=== PATIENT | male | born 2000 | race Caucasian/White ===

== ENCOUNTER → 2021-02-27 | Outpatient (CLI) | payer OTHER | END | disposition home or self-care (01) | LOC: LABMAIN 17:24 | PROVIDERS: ATTEND Emergency Medicine | DX: Z20.822 Contact with and (suspected) exposure to COVID-19 (principal) | CPT/HCPCS: 87635 ==

== ENCOUNTER 2021-05-16 22:40 | Emergency (ER) | payer OTHER ==
[2021-05-16 22:59] VITALS: RESP 18
[2021-05-16] MEDS ORDERED: PANTOPRAZOLE 40 MG/10 ML VIAL IVP STA (23:49)
[2021-05-16] MEDS ORDERED: SODIUM CHLORIDE 0.9% 1,000 ML IV STA (23:49)
[2021-05-16] MEDS ORDERED: SODIUM CHLORIDE 0.9% 500 ML 500 ML IV STA (23:49)
[2021-05-16] MEDS ORDERED: ONDANSETRON 4 MG/2 ML VIAL IVP STA (23:49)
[2021-05-16] MEDS ORDERED: KETOROLAC 15 MG/ML 1 ML VIAL IVP STA (23:50)
[2021-05-16] MEDS ORDERED: diphenhydrAMINE 50 MG/ML 1 ML VIAL IVP STA (23:50)
--- NOTE | 2021-05-16 23:51 | ED ---
Nausea/Vomiting/Diarrhea HPI - General Chief complaint: Nausea/Vomiting/Diarrhea Stated complaint: Nausea, Vomiting, Diziness Time Seen by Provider: 05/16/21 23:49 Source: patient, RN notes reviewed, old records reviewed Mode of arrival: ambulatory Limitations: no limitations - History of Present Illness Initial comments: This is a 20-year-old male to the emergency department for evaluation. Patient's coming in for evaluation regarding nausea vomiting and diarrhea. Patient also is complaining of headache that started about 5 AM. Patient has no prior history of similar symptoms. No prior history of travel, no known significant sick contacts. Patient denying fever. MD complaint: nausea, vomiting, diarrhea -: hour(s) Description of Vomiting: watery Description of Diarrhea: water Associated Abdominal Pain: Yes Location: diffuse Radiation: none Severity: moderate Severity scale (1-10): 4 Quality: cramping, aching Consistency: intermittent Improves with: none Worsens with: none Associated Symptoms: myalgias, headaches, loss of appetite, nausea/vomiting - Related Data Allergies Allergy/AdvReac Type Severity Reaction Status Date / Time No Known Allergies Allergy Verified 05/17/21 00:29 Review of Systems ROS Statement: Those systems with pertinent positive or pertinent negative responses have been documented in the HPI. ROS Other: All systems not noted in ROS Statement are negative. Past Medical History Past Medical History: No Reported History History of Any Multi-Drug Resistant Organisms: None Reported Past Surgical History: No Surgical Hx Reported Past Psychological History: No Psychological Hx Reported Smoking Status: Never smoker Past Alcohol Use History: None Reported Past Drug Use History: None Reported General Exam Limitations: no limitations General appearance: alert, in no apparent distress Head exam: Present: atraumatic, normocephalic, normal inspection Eye exam: Present: normal appearance, PERRL, EOMI. Absent: scleral icterus, conjunctival injection, periorbital swelling ENT exam: Present: normal exam, mucous membranes moist Neck exam: Present: normal inspection. Absent: tenderness, meningismus, lymphadenopathy Respiratory exam: Present: normal lung sounds bilaterally. Absent: respiratory distress, wheezes, rales, rhonchi, stridor Cardiovascular Exam: Present: normal rhythm, tachycardia, normal heart sounds. Absent: systolic murmur, diastolic murmur, rubs, gallop, clicks GI/Abdominal exam: Present: soft, normal bowel sounds. Absent: distended, tenderness, guarding, rebound, rigid Extremities exam: Present: normal inspection, full ROM, normal capillary refill. Absent: tenderness, pedal edema, joint swelling, calf tenderness Back exam: Present: normal inspection Neurological exam: Present: alert, oriented X3, CN II-XII intact Psychiatric exam: Present: normal affect, normal mood Skin exam: Present: warm, dry, intact, normal color. Absent: rash Course Vital Signs 05/16/21 05/17/21 22:55 00:23 Temperature 98.5 F Pulse Rate 107 H 102 H Respiratory 18 18 Rate Blood Pressure 105/63 125/67 O2 Sat by Pulse 98 99 Oximetry - Reevaluation(s) Reevaluation #1: 05/16/21 23:51 Medical records reviewed Reevaluation #2: 05/17/21 02:25 Patient significant symptoms improved here in the ER Reevaluation #3: 05/17/21 02:25 Patient informed results and questions answered Medical Decision Making - Medical Decision Making 20 male to the emergency department for evaluation patient presents today for evaluation regards to nausea vomiting. Negative for Kovic. Symptoms improved here in the ER and can be discharged home - Lab Data Result diagrams: 05/17/21 00:17 05/17/21 01:00 Lab Results 05/17/21 05/17/21 05/17/21 Range/Units 00:17 01:00 01:49 WBC 13.2 H (4.0-11.0) k/uL RBC 6.29 H (4.30-5.90) m/uL Hgb 19.8 H* (13.0-17.5) gm/dL Hct 56.6 H (39.0-53.0) % MCV 90.0 (80.0-100.0) fL MCH 31.5 (25.0-35.0) pg MCHC 35.0 (31.0-37.0) g/dL RDW 13.3 (11.5-15.5) % Plt Count 174 (150-450) k/uL MPV 8.0 Neutrophils % 93 % Lymphocytes % 2 % Monocytes % 4 % Eosinophils % 0 % Basophils % 0 % Neutrophils # 12.3 H (1.3-7.7) k/uL Lymphocytes # 0.3 L (1.0-4.8) k/uL Monocytes # 0.5 (0-1.0) k/uL Eosinophils # 0.1 (0-0.7) k/uL Basophils # 0.0 (0-0.2) k/uL Sodium 139 (137-145) mmol/L Potassium 4.8 (3.5-5.1) mmol/L Chloride 107 (98-107) mmol/L Carbon Dioxide 21 L (22-30) mmol/L Anion Gap 11 mmol/L BUN 21 H (9-20) mg/dL Creatinine 0.99 (0.66-1.25) mg/dL Est GFR (CKD-EPI)AfAm >90 (>60 ml/min/1.73 sqM) Est GFR (CKD-EPI)NonAf >90 (>60 ml/min/1.73 sqM) Glucose 106 H (74-99) mg/dL Calcium 9.1 (8.4-10.2) mg/dL Total Bilirubin 1.0 (0.2-1.3) mg/dL AST 30 (17-59) U/L ALT 24 (4-49) U/L Alkaline Phosphatase 64 (38-126) U/L Lactate Dehydrogenase 545 (313-618) U/L C-Reactive Protein 2.8 H (<1.0) mg/dL Total Protein 7.7 (6.3-8.2) g/dL Albumin 4.6 (3.5-5.0) g/dL Amylase 52 (30-110) U/L Lipase 36 (23-300) U/L Coronavirus (PCR) Not Detected (Not Detectd) - Radiology Data Radiology results: report reviewed (Chest x-rays negative for acute disease), image reviewed Disposition Clinical Impression: Gastroenteritis, Dehydration, Nausea & vomiting Disposition: HOME SELF-CARE Condition: Good Instructions (If sedation given, give patient instructions): Acute Nausea and Vomiting (ED) Is patient prescribed a controlled substance at d/c from ED?: No Referrals: Cole Rincon MD [Primary Care Provider] - 1-2 days
[2021-05-17 00:40] LABS: Basophils % (A) 0 %; Eosinophils # (A) 0.1 k/uL (0-0.7); Eosinophils % (A) 0 %; Lymphocytes # (A) 0.3 k/uL (1.0-4.8); Lymphocytes % (A) 2 %; MCH 31.5 pg (25.0-35.0); Monocytes # (A) 0.5 k/uL (0-1.0); Monocytes % (A) 4 %; Neutrophils # (A) 12.3 k/uL (1.3-7.7); Neutrophils % (A) 93 %; Platelet Count 174 k/uL (150-450); RBC 6.29 m/uL (4.30-5.90); RDW 13.3 % (11.5-15.5); WBC 13.2 k/uL (4.0-11.0)
[2021-05-17 00:43] LABS: HGB 19.8 gm/dL (13.0-17.5)
[2021-05-17 00:44] LABS: HCT 56.6 % (39.0-53.0)
[2021-05-17 01:26] LABS: ALT 24 U/L (4-49); AST 30 U/L (17-59); African American GFR (CKD) >90 (>60 ml/min/1.73 sqM); Albumin 4.6 g/dL (3.5-5.0); Alkaline Phosphatase 64 U/L (38-126); Amylase 52 U/L (30-110); Anion Gap 11 mmol/L; Blood Urea Nitrogen 21 mg/dL (9-20); C Reactive Protein 2.8 mg/dL (<1.0); Calcium 9.1 mg/dL (8.4-10.2); Carbon Dioxide 21 mmol/L (22-30); Chloride 107 mmol/L (98-107); Glucose 106 mg/dL (74-99); LDH 545 U/L (313-618); Lipase 36 U/L (23-300); Non-African American GFR(CKD) >90 (>60 ml/min/1.73 sqM); Sodium 139 mmol/L (137-145); Total Protein 7.7 g/dL (6.3-8.2)
[2021-05-17 01:35] LABS: Potassium 4.8 mmol/L (3.5-5.1)
--- NOTE | 2021-05-17 02:14 | XR ---
EXAMINATION TYPE: XR chest 1V portable DATE OF EXAM: 05/17/2021 COMPARISON: NONE HISTORY: Short of breath TECHNIQUE: Single view FINDINGS: Heart and mediastinum are normal. Lungs are clear. Diaphragm is normal. Bony thorax appears normal. IMPRESSION: Normal chest.
[2021-05-17] MEDS ORDERED: ONDANSETRON 4 MG ODT STARTER PACK 2 TAB BTL PO STA (02:26)
[2021-05-17 02:50] VITALS: BP 117/54; PULSE 78; TEMP 97.9
== END 2021-05-17 02:49 | disposition home or self-care (01) ==
LOC: EC 22:40
DX: K52.9 Noninfective gastroenteritis and colitis, unspecified (principal); E86.0 Dehydration; Z20.822 Contact with and (suspected) exposure to COVID-19
CPT/HCPCS: 99284; 96374; 96375 ×3; 96361 ×6; 36415; 80053; 82150; 83615; 83690; 85025; 86140; 87635; 71045; J1200; J2405; J1885; S0119; C9113

== ENCOUNTER 2022-01-23 06:36 | Day surgery (SDC) | payer OTHER ==
[2022-01-21 11:43] VITALS: BMI 29.4
[~2022-01-23 06:36] MED LIST: LACTATED RINGERS 1,000 ML IV SCH; LIDOCAINE 1% (10MG/ML) FOR IV START INTRADERMA PRN
[2022-01-23 06:52] VITALS: RESP 16; TEMP 97.8
[2022-01-23] MEDS ORDERED: MIDAZOLAM 2 MG/2 ML VIAL ONE (07:30)
[2022-01-23] MEDS ORDERED: LIDOCAINE 2% INJ 20 MG/ML (2 ML VIAL) ONE (07:30)
[2022-01-23] MEDS ORDERED: fentaNYL (PF) 50 MCG/ML 2 ML AMP ONE (07:30)
[2022-01-23] MEDS ORDERED: PROPOFOL 10 MG/ML 20 ML VIAL IV ONE (07:30)
--- NOTE | 2022-01-23 07:48 | P.PCN ---
Date of Procedure: 01/23/22 Procedure(s) Performed: BRIEF HISTORY: Patient is a 21-year-old, pleasant, white male scheduled for an upper endoscopy as part of evaluation of intermittent dysphagia to solids for the last 2-3 years duration. These episodes happen once or twice a week and often with solids only. Had a few choking episodes. He is scheduled for an upper endoscopy with possible dilation today.. PROCEDURE PERFORMED: Esophagogastroduodenoscopy with biopsy and dilation. PREOPERATIVE DIAGNOSIS: Intermittent dysphagia to solids of 23 years duration. IV sedation per anesthesia. PROCEDURE: After informed consent was obtained, the patient was brought into the endoscopy unit. IV sedation was administered by Anesthesia under continuous monitoring. Initially the Olympus GIF-140 video endoscope was inserted into the mouth. Esophagus intubated without any difficulty. It was gradually advanced into the stomach and duodenum and carefully examined. The bulb and the second part of the duodenum appeared normal. The scope at this time was withdrawn to the stomach, adequately insufflated with air, and upon careful examination, mucosa of the antrum, mild gastritis and biopsies were done from this area. The body, cardia and the fundus appeared normal. The scope was then withdrawn into the esophagus. The GE junction was located at 39 cm from the incisors. There was a distal esophageal stricture identified which was dilated using 15/16.5 mm TTS balloon in a sequential fashion seconds. Following the dilation there was a small mucosal tear and hence further dilation was not performed. There were a can esophageal folds in the mid and distal esophagus suspicious for years of age esophagitis. Multiple biopsies were done from the mid and distal esophagus. The rest of the esophagus appeared normal. There were no erosions or ulcerations seen and the patient tolerated the procedure well. IMPRESSION: 1. Distal esophageal stricture status post balloon dilation using 15-16.5 mm TTS balloon as described above. 2. Thickened mid and distal esophageal folds suspicious for eosinophilic esophagitis status post multiple biopsies. 3. Mild antral gastritis RECOMMENDATIONS: The findings of this examination were discussed with the patient as well as his family. He was advised to follow with the biopsy results . He'll be on a clear liquid diet for lunch today. He'll be seen in office in 2 weeks..
[2022-01-23 07:59] VITALS: BP 105/65; PULSE 60
== END 2022-01-23 08:32 | disposition home or self-care (01) ==
LOC: ORWHC2ENDO 06:36
PROVIDERS: ATTEND Internal Medicine Gastroenterology
DX: K29.50 Unspecified chronic gastritis without bleeding (principal); K22.2 Esophageal obstruction
CPT/HCPCS: 88305; 43239; 43249; J2250; J3010; J2704; J2001; C1726

== ENCOUNTER → 2023-03-25 | Outpatient (CLI) | payer OTHER ==
[2023-03-25 11:14] LABS: ALT 55 U/L (10-49); AST 29 U/L (14-35); Albumin 4.8 g/dL (3.8-4.9); Albumin/Globulin Ratio 1.71 Ratio (1.60-3.17); Alkaline Phosphatase 54 U/L (41-126); Bilirubin, Conjugated <0.20 mg/dL (0.20-0.40); Bilirubin,Unconjugated >0.40 mg/dL (0.20-1.00); GGT 17 U/L (0-73); Globulin 2.8 g/dL (1.6-3.3); Total Bilirubin 0.6 mg/dL (0.3-1.2); Total Protein 7.6 g/dL (6.2-8.2)
== END | disposition home or self-care (01) ==
LOC: LABWHC1 07:21
PROVIDERS: ATTEND Family Medicine
DX: R74.01 Elevation of levels of liver transaminase levels (principal); E29.1 Testicular hypofunction
CPT/HCPCS: 36415; 80076; 82040; 82977; 84270; 84403

== ENCOUNTER → 2024-06-29 | Outpatient (CLI) | payer OTHER ==
--- NOTE | 2024-07-02 11:42 | MR ---
EXAMINATION TYPE: MR knee LT wo con DATE OF EXAM: 06/29/2024 4:19 PM COMPARISON: None. CLINICAL INDICATION: Male, 23 years old with history of S83.207A UNSP TEAR OF UNSP MENISCUS, CURRENT INJUR; PH[facility], Left knee locked while walking and popped causing pain x3 weeks ago TECHNIQUE: Multi planar, multi sequence imaging was performed of the knee including: Triplane proton density fat-saturated images and T1-weighted imaging. No Gadolinium was given. IV Contrast: mL (none if empty) FINDINGS: Medial meniscus: Intact Medial femorotibial cartilage: Intact Medial collateral ligament: Intact Lateral meniscus: Discoid lateral meniscus with body extending deep into the joint space. Lateral femorotibial cartilage: Intact Lateral collateral ligament complex: Intact Patellofemoral alignment: Normal Patellofemoral cartilage: Intact Extensor mechanism: Intact. Joint/bursal fluid: None. Muscles/tendons: The patellar tendon, quadriceps tendon, IT band, pes anserinus tendons, semimembrano eric tendon, popliteus tendon, and biceps femoris tendon are all within normal limits. Bone marrow: Normal. Anterior cruciate ligament: Intact. Posterior cruciate ligament: Intact. Soft tissues: Unremarkable. IMPRESSION: 1. No definitive evidence to suggest meniscal tear nor ligamentous injury. 2. Discoid lateral meniscus. [facility], , 07/02/2024 11:40 AM
== END | disposition home or self-care (01) ==
LOC: RADMRIMAIN 15:20
PROVIDERS: ATTEND Orthopaedic Surgery Sports Medicine
DX: S83.207A Unspecified tear of unspecified meniscus, current injury, left knee, initial encounter (principal)